=== PATIENT | female | born 1935 | race Asian ===

== ENCOUNTER 2017-01-20 11:42 | Inpatient (IN) | payer OTHER, MEDICAID ==
[~2017-01-20] VITALS: Ht 152.4 cm; Wt 59.0 kg
--- NOTE | 2017-01-20 12:00 | NUR ---
PT BIB RA WITH IV PRESENT COMMUNITY AFFAIRS DIRECTOR WHICH RA SAYS THEY DID NOT INSERT. PT SPEAKS JAPANESE AND AT THIS TIME NO MAINTENANCE TECHNICIAN IS AVAILABLE, SO ASSESSMENT IS LIMITED. PT DOES NOT APPEAR IN ACUTE DISTRESS; NO S/SX PAIN NOTED. RESP EVEN UNLABORED. SKIN WARM NONDIAPHORETIC. NO HOSPITAL OR FACILITY ID BANDS PRESENT. IN ER BED 01.
[2017-01-20] MEDS ORDERED: OLANZAPINE 10 MG VIAL IM ONE ×2 (12:30→12:37)
[2017-01-20] MEDS ORDERED: WATER FOR INJECTION,STERILE 10 ML ONE (12:37)
[2017-01-20 12:50] LABS: BASOPHILS % (AUTO) 0.4 % (0.0-2.0); EOSINOPHILS # (AUTO) 0.2 /CMM (0.0-0.7); EOSINOPHILS % (AUTO) 1.9 % (0.0-6.0); HEMATOCRIT 34 % (33-45); HEMOGLOBIN 11.2 g/dL (11.5-14.8); LYMPHOCYTES # (AUTO) 0.9 /CMM (0.8-4.8); LYMPHOCYTES % (AUTO) 8.6 % (20.0-44.0); MEAN CORPUSCULAR HEMOGLOBIN 31 PG (26.0-33.0); MEAN CORPUSCULAR HGB CONC 33 g/dl (31.0-36.0); MEAN CORPUSCULAR VOLUME 94 fL (82-100); MONOCYTES # (AUTO) 0.8 /CMM (0.1-1.30); NEUTROPHILS # (AUTO) 8.3 /CMM (1.8-8.9); NEUTROPHILS % (AUTO) 81.1 % (43.0-81.0); PLATELET COUNT (AUTO) 355 /CMM (150-450); RDW COEFFICIENT OF VARIATION 17.9 (11.5-15.0); RED BLOOD CELL COUNT(AUTO) 3.58 MIL/uL (4.0-5.2); WHITE BLOOD COUNT (AUTO) 10.2 K/uL (4.3-11.0)
[2017-01-20 12:59] LABS: CALCIUM, SERUM 8.8 mg/dL (8.5-10.1); CARBON DIOXIDE 23 mmol/L (21-32); CHLORIDE 107 mmol/L (98-107); CREATININE 0.6 mg/dL (0.6-1.3); GLUCOSE 108 mg/dL (74-106); POTASSIUM 3.2 mmol/L (3.5-5.1); SODIUM SERUM 141 mmol/L (136-145); UREA NITROGEN, BLOOD 11 mg/dL (7-18)
[2017-01-20 13:05] LABS: ALANINE AMINOTRANSFERASE 139 U/L (12-78); ALBUMIN 3.2 g/dL (3.4-5.0); ALCOHOL, BLOOD < 3 mg/dL (0-0); ALKALINE PHOSPHATASE 180 U/L (46-116); ASPARTATE AMINOTRANSFERASE 49 U/L (15-37); BILIRUBIN,DIRECT 5.7 mg/dL (0.0-0.2); TOTAL PROTEIN, SERUM 7.3 g/dL (6.4-8.2)
[2017-01-20 13:06] LABS: ACETAMINOPHEN 0 ug/ml (10-30); SALICYLATE < 0.2 mg/dL (2.8-20.0)
--- NOTE | 2017-01-20 13:36 | NUR ---
[facility] IS ASS[id number]
--- NOTE | 2017-01-20 14:15 | NUR ---
PT RESTING CALMLY, NAD NOTED. TRANSLATION PROVIDED VIA TRANSLATION COMPUTER.
[2017-01-20] MEDS ORDERED: POTASSIUM CHLORIDE 20 MEQ TAB.PRT.SR PO ONE (14:30)
[2017-01-20 14:32] LABS: APPEARANCE,URINE Clear (CLEAR); BLOOD, URINE Moderate Ery/uL (NEGATIVE); COLOR,URINE Yellow (YELLOW); KETONES,URINE 40 (NEGATIVE); LEUKOCYTE ESTERASE ,URINE Moderate (NEGATIVE); NITRITE, URINE Negative (NEGATIVE); PROTEIN,URINE Trace mg/dl (NEGATIVE); UGLUCOSE Negative (NEGATIVE); UROBILINOGEN,URINE 0.2 EU/dL (0.2)
[2017-01-20 14:34] LABS: BILIRUBIN,URINE MODERATE (NEGATIVE)
[2017-01-20 14:38] LABS: ADD URINE CULTURE YES; BACTERIA,URINE Many /HPF (None Seen); SQUAMOUS EPITHELIAL CELL,UR Few /HPF (None Seen)
[2017-01-20 14:39] LABS: CANNABINOID, URINE NEGATIVE (NEGATIVE); PHENCYCLIDINE SCREEN,URINE NEGATIVE (NEGATIVE)
[2017-01-20] MEDS ORDERED: CEPHALEXIN MONOHYDRATE 500 MG CAPSULE PO ONE ×2 (15:02→15:30)
--- NOTE | 2017-01-20 15:06 | NUR ---
PAGED FACULTY [employer] JUST[employer] FOR SHELBIE LANCE
[2017-01-20] MEDS ORDERED: LORAZEPAM INJ 2 MG/ML VIAL ONE (15:08)
--- NOTE | 2017-01-20 15:10 | NUR ---
PT GETTING OUT OF BED, UNSTEADY GAIT, TAKING OFF CLOTHES, UNCOOPERATIVE. PLACED ON 2POINT SOFT RESTRAINTS FOR SAFETY PER MD.
[2017-01-20] MEDS ORDERED: CEFTRIAXONE 1GM BAG (ER ONLY) 50 ML IV ONE (15:27)
[2017-01-20] MEDS ORDERED: IV SET PRIMARY 1 EA INFUS.SET MC ONE ×2 (15:27→15:35)
[2017-01-20] MEDS ORDERED: CEFTRIAXONE 1GM BAG (ER ONLY) 1 GM/50 ML PIGGYBACK IV ONE (15:30)
[2017-01-20] MEDS ORDERED: LORAZEPAM INJ 2 MG/ML VIAL IV ONE (15:30)
[2017-01-20] MEDS ORDERED: IV NS 0.9% 1,000 ML BAG IV ONE (15:30)
[2017-01-20] MEDS ORDERED: IV NS 0.9% 1,000 ML ONE (15:35)
--- NOTE | 2017-01-20 15:43 | NUR ---
PT RESTING IN BED QUIETLY, NAD NOTED. VSS. ON [address] FRANKLIN FOR SAFETY.
[2017-01-20 15:50] LABS: IRON, SERUM 59 ug/dl (50-175); TOTAL IRON BINDING CAPACITY 291 ug/dl (250-450)
--- NOTE | 2017-01-20 15:54 | NUR ---
REPORT GIVEN TO REANNA WESLEY FOR ADMISSION
--- NOTE | 2017-01-20 15:55 | NUR ---
MONICA, PSYCH CLINICIAN, AT BEDSIDE.
--- NOTE | 2017-01-20 17:46 | NUR ---
RESTING IN BED ON 2POINT RESTRAINTS, FIDGETING, ATTEMPTING TO STAND UP. REPOSITIONED AND PLACED ON BEDPAN; NO CHANGE IN BEHAVIOR.
--- NOTE | 2017-01-20 18:02 | NUR ---
PT TRANSPORTED TO [facility] IN STABLE CONDITION VIA WHEELCHAIR
--- NOTE | 2017-01-20 19:03 | NUR ---
GPS/RN ADMITTING ORDERS FROM DR CHOI RECEIVED AND CARRIED OUT. WILL ENDORSE TO MANAGER TECHNICAL SERVICES TO CONTINUE WITH ADMISSION
--- NOTE | 2017-01-20 19:15 | NUR ---
GPS/RN ENDORSED TO SLEDGER YUE RN TO FOLLOW UP WITH [facility] ADMITTING REGARDING PT POTASSIUM 3.2 AND P REFUSING OF PO MEDS IN ER.
[2017-01-20] MEDS ORDERED: MAGNESIUM HYDROXIDE 30 ML UDC PO PRN (19:30)
[2017-01-20] MEDS ORDERED: MAG HYDROX/AL HYDROX/SIMETH 30 ML UDC PO PRN (19:30)
[2017-01-20] MEDS ORDERED: LORAZEPAM 0.5 MG TABLET PO PRN (19:30)
[2017-01-20] MEDS ORDERED: ACETAMINOPHEN 325 MG TABLET PO PRN (19:30)
[2017-01-20] MEDS ORDERED: TEMAZEPAM 7.5 MG CAPSULE PO PRN (19:30)
[2017-01-20 20:00] VITALS: BP 137/78
--- NOTE | 2017-01-20 20:00 | NUR ---
ADMITTED NOTES THIS 81Y/O FEMALE ADMITTED FROM [facility] ER. IS ON 5150 HOLD , GD PER HOLD PT. WAS FOUND WALKING IN THE STREET SHE IS VIETNAMS SPEAKING ON ONLY, UP ON ASSESSMENT PT IS ALERT AWAKE ,PT IS DEPRESSIVE ANXIOUS,UNCOOPERATIVE AT THIS TIME , SKIN ASSESSMENT DONE ,SKIN INTACT NOTED , AND BOTH FEET ARE DRYNESS NOTED , NO ACUTE DISTRESS NOTED CONTRABAND CHECK DONE, SAFE ENVIRONMENT PROVIDED , BOTH MD AWARE OF NEW ADMISSION AND MEDICATION, NEW ORDERS RECEIVED AND CARRIED OUT. WILL CONTINUE TO MONITOR FOR SAFETY AND BEHAVIOR .
[2017-01-20 20:22] VITALS: BP 147/98
--- NOTE | 2017-01-20 20:30 | NUR ---
RN NOTES PT . SEEN BY DREW GUNDERSON NEW ORDERS RECEIVED AND CARRIED OUT
[2017-01-20] MEDS ORDERED: POTASSIUM CHLORIDE 20 MEQ POWDER PACKET PO ONE (21:00)
[2017-01-20] MEDS ORDERED: POTASSIUM CHLORIDE 20 MEQ POWDER PACKET ONE (22:09)
--- NOTE | 2017-01-21 02:00 | NUR ---
PT FAMILY VISIT HER AROUND 2 :00AM , PER PT FAMILY STATES THEY WILL COME BACK SEE HER IN THE MORNING Addendum: 01/21/17 at 0604 by CATHI TOTH RN family reported to police that they were looking for the patient
--- NOTE | 2017-01-21 04:17 | NUR ---
PT.REFUSED TO MRSA SWAB PT. WAS UNCOOPERATIVE
[2017-01-21] MEDS ORDERED: CEPHALEXIN MONOHYDRATE 250 MG CAPSULE PO SCH (09:00)
[2017-01-21 09:01] VITALS: BP 167/92
--- NOTE | 2017-01-21 11:39 | NUR ---
WOUND CARE CONSULT: PATIENT SEEN AND SKIN ASSESSMENT DONE. PATIENT ALERT, INDEPENDENT WITH BED MOBILITY, AMBULATES WITH SBA, INCONTINENT, IVONNE 19. PATIENT PRESENTS ON ADMISSION WITH SKIN INTACT. BILATERAL FEET DRYNESS, WITH CALLUS NOTED. RECOMMEND KEEP SKIN CLEAN AND DRY, MOISTURIZE FEET, MOISTURE PROTECTION WITH Z GUARD ORDERED. ALL DISCUSSED WITH NURSING STAFF. MD IN AGREEMENT WITH PLAN OF CARE.
[2017-01-21] MEDS ORDERED: Z GUARD REMEDY 2 OZ OINT TP PRN (12:00)
--- NOTE | 2017-01-21 12:09 | NUR ---
DANIEL received a voicemail from Dr Hahn [phone], pt's primary care physician, who requested to be called back. DANIEL called Dr. Hahn back and she wanted to notify the hospital that pt. is her patient and is generally not very clean which does not mean she is homeless. She reported that pt's went to see her and asked to call to clarify that with the hospital as they would like the patient to be discharged home as soon as possible. DANIEL will relay the information to the psychiatrist.
[2017-01-21 16:00] VITALS: BP 153/84
--- NOTE | 2017-01-21 16:24 | NUR ---
DISCHARGE NOTES/ PATIENT A/O X2 VIETNAMS SPEAKER, PT A/O X2, PATIENT MED COMPLIANT. V/S STABLE, NO C/O PAIN. PATIENT DENIED SI/HI/AVH AT THIS TIME. MED RECONCILIATION AND DISCHARGE ORDER REVIEWED AND EXPLAINED TO PATIENT AND SON. SON NAME CHRISTIANO VERBALIZED UNDERSTANDING. BELONGING RETURNED BACK TO THE PATIENT. PATIENT RETAIL PRODUCT DEMO SPECIALIST BY CAB.
--- NOTE | 2017-01-21 17:14 | NUR ---
Discharge note:Pt was discharged with and son back home to [address] [place] [id number]. [phone] with taxi. Pt's son and picked her up and signed continuing care acknowledgement form. Pt. was calm and cooperative and agreed to be discharged back home with . Pt. denied having suicidal/homicidal ideations. Pt. will follow up with PCP Dr. Ann [phone] and was also provided with a referral to [facility] [id number] [facility], [place] [address] . Discharge paperwork has been signed and discharge instructions were provided to family and patient.
--- NOTE | 2017-01-21 17:14 | NUR ---
Initial discharge plan: Pt. lives at home with and son and will return back home. Address is [address] [place] [id number]. [phone] . Pt's son and have been at the hospital requesting to take the patient home. DANIEL followed up with MD and after evaluation pt. was allowed to return home with the family.
--- NOTE | 2017-01-22 11:17 | NUR ---
SW called APS to file report for patient. Assigned DANIEL Helton informed this SW that APS report needs to be filed due to patient being found wandering in the streets with no shoes and with dirty clothes. Patient has no teeth and is confused. Family insisted on taking the patient's home and psychiatrist could not find criteria to keep the patient any longer. A concern exists for the patient due to possible self-neglect and neglect from the family. Patient has minimal supervision when going out. DANIEL spoke with Sydnie and APS number was generated: [id number].
[2017-01-23 08:16] LABS: HEPATITIS A AB, IgM Negative (Negative); HEPATITIS B CORE AB, IgM Negative (Negative); HEPATITIS C VIRUS AB <0.1 s/co ratio (0.0-0.9)
== END 2017-01-21 17:08 | disposition home or self-care (01) | DRG 885 ==
LOC: ER 11:46 → GPS 15:49
PROVIDERS: ADMIT Psychiatry & Neurology Psychiatry; ATTEND Internal Medicine
DX: F39 Unspecified mood [affective] disorder (principal); G93.41 Metabolic encephalopathy; K83.1 Obstruction of bile duct; E44.0 Moderate protein-calorie malnutrition; N39.0 Urinary tract infection, site not specified; F29 Unspecified psychosis not due to a substance or known physiological condition; D63.8 Anemia in other chronic diseases classified elsewhere; E87.6 Hypokalemia; E11.9 Type 2 diabetes mellitus without complications; Z73.6 Limitation of activities due to disability; R74.0 Nonspecific elevation of levels of transaminase and lactic acid dehydrogenase [LDH]; S91.302A Unspecified open wound, left foot, initial encounter; S91.301A Unspecified open wound, right foot, initial encounter; X58.XXXA Exposure to other specified factors, initial encounter; Y93.9 Activity, unspecified; Y92.9 Unspecified place or not applicable; Y99.9 Unspecified external cause status; F03.90 Unspecified dementia, unspecified severity, without behavioral disturbance, psychotic disturbance, mood disturbance, and anxiety; Z68.25 Body mass index [BMI] 25.0-25.9, adult
CPT/HCPCS: 36415; 70450-TC; 71010-TC; 76705-TC; 80048-TC; 80074; 80076-TC; 80305; 81000-TC; 82140-TC; 83540-TC; 83605-TC; 85025-TC; 87040-TC; 87086-TC; A4606; G0480; G6039-TC; J0696; J2060; J3490; J7030; Z7610